=== PATIENT | male | born 1970 | race Hispanic/Latino ===

== ENCOUNTER 2019-01-30 09:11 | Day surgery (SDC) | payer BC ==
--- NOTE | 2019-01-30 10:42 | Anesthesia Consultation ---
Anesthesia Consult and Med Hx Date of service: 01/30/19 - Airway Anesthetic Teeth Evaluation: Good ROM Head & Neck: Adequate Mental/Hyoid Distance: Adequate Mallampati Class: Class II Intubation Access Assessment: Good - Pulmonary Exam CTA: Yes - Cardiac Exam Cardiac Exam: RRR - Pre-Operative Health Status ASA Pre-Surgery Classification: ASA3 Proposed Anesthetic Plan: General (Patient with stage 4 Colorectal Ca - on pain meds methadone, dilaudid, hydrocodone , xanax and ativan) - Pulmonary Hx Smoking: Yes (STOPPED X 12 YRS) Hx Sleep Apnea: No (ALICIA PRE SCREEN LOW RISK) - Cardiovascular System Hx Hypertension: No - Central Nervous System Hx Back Pain: Yes (NECK AND BACK PAIN) - Hematic Hx Anemia: Yes - Other Systems Hx Cancer: Yes (STAGE 4- DOING CHEMO AND RADIATION AGAIN)
--- NOTE | 2019-01-30 10:42 | Anesthesia Day of Surgery ---
Anesthesia Day of Surgery - Day of Surgery Patient Examined: Yes Patient H&P Reviewed: Yes Patient is NPO: Yes
[2019-01-30] MEDS ORDERED: ONDANSETRON 4 MG/2 ML INJ IV PRN (10:43)
[2019-01-30] MEDS ORDERED: LACTATED RINGERS 1,000 ML IV SCH (11:00)
[2019-01-30] MEDS ORDERED: MIDAZOLAM 2 MG/2 ML INJ IV NR (11:00)
[2019-01-30] MEDS ORDERED: MIDAZOLAM 2 MG/2 ML INJ IV ONE (12:28)
[2019-01-30] MEDS ORDERED: ceFAZolin/STERILE WATER 2 GM/20 ML SYRINGE IV NR (13:00)
[2019-01-30] MEDS ORDERED: HYDROmorphone 1 MG/1 ML INJ IV ONE (13:04)
[2019-01-30] MEDS ORDERED: fentaNYL 100 MCG/2 ML INJ ONE (14:24)
[2019-01-30] MEDS ORDERED: LIDOCAINE MPF (2%) 20 MG/1 ML VIAL 5 ML ONE (14:24)
[2019-01-30] MEDS ORDERED: PROPOFOL 200 MG/20 ML VIAL IV ONE (14:24)
[2019-01-30] MEDS ORDERED: IOHEXOL 300 MG/ML 50ML IV ONE (15:03)
[2019-01-30] MEDS ORDERED: HYDROmorphone 1 MG/1 ML INJ ONE (15:12)
[2019-01-30] MEDS ORDERED: SUCCINYLCHOLINE CHLORIDE 200 MG/10 ML INJ MDV ONE (15:14)
[2019-01-30] MEDS ORDERED: FUROSEMIDE 40 MG/4 ML INJ ONE (15:23)
[2019-01-30] MEDS ORDERED: ONDANSETRON 4 MG/2 ML INJ ONE (15:25)
[2019-01-30] MEDS ORDERED: LACTATED RINGERS 1,000 ML ONE (15:34)
--- NOTE | 2019-01-30 15:36 | Post Operative Note ---
Date of procedure: 01/30/19 Pre-op diagnosis: AUR neurogenic Post-op diagnosis: same Findings: smooth bladder inflam changes Procedure: spt and biopsy Anesthesia: GETA Surgeon: KEISHA BARKSDALE Estimated blood loss: none Pathology: list (bladder) Specimen disposition: to lab Condition: stable Disposition: PACU
--- NOTE | 2019-01-30 15:38 | Discharge Summary ---
Short Stay Discharge Plan Activity: other (no straining ) Weight Bearing Status: Full Weight Bearing Diet: regular Wound: open to air, keep clean and dry, change dressing Special Instructions: other (no pulling on cath ) Durable Medical Equipment Needed Upon Discharge: other (scott ) Follow up with: IRINA BATEMAN MD [Primary Care Provider] - 7 Days
[2019-01-30] MEDS: HYDROmorphone 1 MG/1 ML INJ IV PRN ×6 (15:47→16:45)
--- NOTE | 2019-01-30 16:06 | Fluoroscopy Report ---
FLUOROSCOPY CYSTOGRAM STATIC HISTORY: Urinary retention FINDINGS: 9 seconds of fluoroscopy time was provided by radiology during cystogram performed by urolo gy. 3 fluoroscopic images are presented demonstrating a small amount of contrast agent within the ayesha dder which was injected through a suprapubic catheter. The bladder appears low volume but no filling defect or ureteral reflux is appreciated. Please correlate with the procedural report as needed. Signer Name: Ezequiel Fields Jr, MD Signed: 01/30/2019 4:02 PM Workstation Name: [id number]
[2019-01-30 17:03] VITALS: BP 129/78
--- NOTE | 2019-01-30 19:27 | Operative Report ---
PREOPERATIVE DIAGNOSES: Urinary retention, invasive colon cancer ____. POSTOPERATIVE DIAGNOSES: Urinary retention, invasive colon cancer ____ with inflammatory changes, right side of the bladder more anterior and lateral. PROCEDURE: Cystoscopy, suprapubic tube insertion, bladder biopsy, fulguration. SURGEON: Dr. Goldman. ANESTHESIA: General. FINDINGS: This is a gentleman with extensive colon cancer metastatic stage 4, who cannot urinate and had severe pain from the Self despite any type of medication. He wanted this out and he was crying on Wednesday. He now presents for treatment. DESCRIPTION OF PROCEDURE: The patient was brought to the operating room and placed on the operating table. Following induction of anesthesia, placed in lithotomy position, prepped and draped in usual sterile fashion. Flexible cystoscopy showed a little area of inflammatory raised area on the right side of the bladder. This may very well be from the catheter. Hopefully, it is not any type of colon cancer. Rest of bladder was normal. Using the trocar we made an incision as low as we could to avoid any bowel. This was the risk that we discussed in length preoperatively. Incision was made right on to the trocar and the [place] was brought forward. We brought the Self out the meatus. This was filled with approximately 14 mL of sterile water. Bladder biopsy was obtained. The area was cauterized. The patient tolerated the procedure well and brought to recovery in stable condition. Family notified. Minimal blood loss. JOB# [id number] [place]
--- NOTE | 2019-01-31 11:04 | Post Anesthesia Evaluation ---
- Post Anesthesia Evaluation Patient Participated: Yes Airway Patent: Yes Stable Respiratory Function: Yes Nausea/Vomiting: No Temp > 96.8F: Yes Pain Manageable: Yes Adequeate Hydration: Yes Anesthesia Complications: No Block Receding Appropriately: Not Applicable Patient on Ventilator: No
== END 2019-01-30 18:15 | disposition home or self-care (01) ==
LOC: OR 09:11
PROVIDERS: ATTEND Urology
DX: R33.8 Other retention of urine (principal); N30.00 Acute cystitis without hematuria; C18.9 Malignant neoplasm of colon, unspecified; K21.9 Gastro-esophageal reflux disease without esophagitis; F32.9 Major depressive disorder, single episode, unspecified; Z79.899 Other long term (current) drug therapy; Z87.891 Personal history of nicotine dependence; Z87.440 Personal history of urinary (tract) infections; Z85.89 Personal history of malignant neoplasm of other organs and systems; Z98.890 Other specified postprocedural states; Z86.2 Personal history of diseases of the blood and blood-forming organs and certain disorders involving the immune mechanism; Z88.8 Allergy status to other drugs, medicaments and biological substances
CPT/HCPCS: 52204; 74430; 88305; J0330; J0690; J1170; J1940; J2250; J2405; J2704; J3010; J7120; Q9967